=== PATIENT | female | born 1945 | race Caucasian/White ===

== ENCOUNTER → 2023-07-08 07:28 | Outpatient (REF) | payer MEDICARE, OTHER, SELFPAY | LOC: RAD 07:28 | PROVIDERS: ATTENDING PHYSICIAN Family Medicine | DX: R10.13 Epigastric pain (principal); E10.11 Type 1 diabetes mellitus with ketoacidosis with coma | CPT/HCPCS: 76700 ==

== ENCOUNTER → 2023-07-12 09:49 | Outpatient (REF) | payer MEDICARE, OTHER, SELFPAY | LOC: RAD 09:49 | PROVIDERS: ATTENDING PHYSICIAN Family Medicine | DX: R10.13 Epigastric pain (principal); R10.11 Right upper quadrant pain | CPT/HCPCS: 74246 ==

== ENCOUNTER 2023-11-14 11:00 | Emergency (ER) | payer MEDICARE, OTHER, SELFPAY ==
[2023-11-14 11:09] VITALS: BP 169/93
[2023-11-14 11:31] VITALS: BMI 32.1
[2023-11-14 11:35] LABS: % Basophils 0.7 % (0-2); % Eosinophils 0.4 % (0-6); % Immature Granulocytes 0.1 % (0-0.5); % Lymphocytes 28.5 % (20.5-51.1); % Monocytes 9.8 % (1.7-9.3); % Neutrophils 60.5 % (42.2-75.2); Absolute Basophils 0.1 10^3/uL (0-0.2); Absolute Monocytes 0.7 10^3/uL (0.1-0.6); Absolute Neutrophils 4.2 10^3/uL (1.4-6.5); Hematocrit 45.9 % (37.0-47.0); Hemoglobin 15.3 g/dL (12.0-16.0); Mean Corp Hgb Conc. 33.3 g/dL (33.0-37.0); Mean Corpuscular Hgb 28.9 pg (27.0-31.0); Mean Corpuscular Volume 86.8 fL (81.0-99.0); Mean Platelet Volume 10.6 fL (7.4-10.4); Nucleated Red Blood Cells % 0 %; Platelet Count 242 10^3/uL (130-400); Red Blood Cell Count 5.29 10^6/uL (4.20-5.40); Red Cell Dist. Width 13.6 % (11.5-14.5); White Blood Cell Count 6.9 10^3/uL (4.8-10.8)
--- NOTE | 2023-11-14 11:38 | ED.GENMED ---
History of Present Illness
General
Chief Complaint: Chest Pain
Time Seen by Provider: 11/14/23 11:38
History of Present Illness
History of Present Illness:
HPI: At about 7:30 AM today, while driving to get EEG, she developed chest discomfort in the center of the chest. She cannot qualify with this feels like well. She has been seen by Dr. Danielson in the past. She has had similar chest discomfort
feelings in the past. She had a more severe episode in June 2023. She has minimal symptoms currently. She has no shortness of breath. She primarily perseverates over the fact that she had '49' episodes of shaking of the left upper extremity
overnight. This is an increased amount of shaking compared to prior. She never had loss of consciousness. That the preliminary report for the EEG was unremarkable and that she 'does not have epilepsy'.
EXAM:
GENERAL: Well appearing in no distress
HEENT: Moist oral mucosa
CARDIOVASCULAR: No murmurs, normal heart rate, regular rhythm, No chest wall tenderness
PULMONARY: No respiratory distress, breath sounds are clear and equal
ABDOMEN: Soft with no peritoneal signs, no tenderness
NEUROLOGIC: Excellent strength all extremities, no coordination deficits, no seizure activity, no myoclonic jerking activity
PSYCHIATRIC: Appropriate mental status, normal insight and judgement
EXTREMITIES: Nontender, no edema, moves all extremities equally
SKIN: No rash, no lesions
TIME OF INITIAL ENCOUNTER: 12:10 PM
NUMBER AND COMPLEXITY OF PROBLEMS ADDRESSED AT THE ENCOUNTER
� Chronic conditions affecting care: High blood pressure, hyperlipidemia
� Acute Exacerbation and/or Progression of Chronic Illness: This is an acute problem
� Differential Diagnosis includes: Nonspecific chest wall pain, ACS, doubt pneumonia as she has no respiratory send
AMOUNT AND/OR COMPLEXITY OF DATA TO BE REVIEWED AND ANALYZED
� I performed an independent evaluation of and my interpretation is:
EKG: Sinus 75, right bundle branch block nonspecific ST abnormality
CT:
X-rays:
Laboratory Studies: CBC, chemistries and troponin unremarkable
Other:
� Review of other/old records:
� Clinical information was obtained by an independent historian: None needed
� Prescriptions/Medications Considered but not given:
� Further testing considered but not performed: Offered and considered chest x-ray however the patient has clear lung sounds and patient does not want chest x-ray at this time
RISK OF COMPLICATIONS AND/OR MORBIDITY OR MORTALITY OF PATIENT MANAGEMENT
� Social determinants of health affecting care: Lives at home
� Discussion with other providers:
� Escalation of care including admission/observation vs risk of discharge considered: The patient had about 4 hours worth of symptoms before troponin drawn. Troponin unremarkable and EKG unchanged. She has relatively low
concerns and feels very comfortable with going home. She would like to be discharged at this time. Consider chest x-ray however the patient also declined chest x-ray. She is also going to follow-up with neurologist as well as cardiology. CBC
cardiology discharge paperwork given to expedite close follow-up.
Past History
Past History
ED Past Medical History: HTN and Psychiatric
Social History
Personal: Single
Living: alone
Employment: Employed
Family History
Family History: Other (Cardiac )
Phy Exam
Physical Exam
Physical Exam:
See HPI
Scores
Heart Score for Chest Pain Patients
STEMI patient?: Not applicable
Course
Orders/Labs/Results
Orders:
Orders
11/14/23 11:02
EKG [Electrocardiogram (*1)] Urgent
Reason for Study: Chest Pain
EKG- Treatment ONCE
11/14/23 11:16
Cardiac Monitoring- Treatment ONCE
IV Insert/Care/Rem.- Treatment PRN
11/14/23 11:25
Complete Blood Count/With Diff Urgent
Comprehensive Metabolic Panel Urgent
Troponin I Urgent
Abnormal Lab Results
11/14/23
11:25
MPV 10.6 H fL
(7.4-10.4)
Absolute Monos (auto) 0.7 H 10^3/uL
(0.1-0.6)
Monocytes % 9.8 H %
(1.7-9.3)
BUN 26 H mg/dl
(7-17)
Glucose 125 H mg/dl
(70-99)
11/14/23 11:25
11/14/23 11:25
Vital Signs
Initial and Last Documented VS:
Initial Vital Signs
Temp Pulse Resp BP Pulse Ox
98.0 F 84 16 169/93 98
11/14/23 11:09 11/14/23 11:09 11/14/23 11:09 11/14/23 11:09 11/14/23 11:09
Last Documented Vital Signs
Temp Pulse Resp BP Pulse Ox
98.0 F 74 17 169/93 97
11/14/23 11:09 11/14/23 12:15 11/14/23 12:15 11/14/23 11:09 11/14/23 12:15
*Critical Care Note
Total Time (30-74mins, 75-104mins- exclusive of procedures): Not Applicable
ED Attending Note
-
Portions of this chart may have been created with voice recognition software.� Occasional wrong word or��sound alike� substitutions may have occurred due to the inherent limitations of voice recognition software.
Discharge Plan
Departure
Patient Disposition: Home (Routine Discharge)
Date of Disposition: 11/14/23
Time of Disposition: 12:26
Patient with high blood pressure during this ER visit?: Yes
Discharge Problem:
Chest pain
Instructions: Chest Pain CBC Follow Up
Prescriptions:
No Action
atenolol 25 MG tablet
25 mg PO DAILY
multivitamin with folic acid [Tab-A-Kvng] 1 TABLET tablet
1 tab PO DAILY
glycopyrrolate 1 MG tablet
1 mg PO DAILY PRN (Reason: sweating)
Citalopram HBr
15 mg PO DAILY
triamterene-hydrochlorothiazid 1 EACH tablet
0.5 ea PO PRN PRN (Reason: swelling)
cholecalciferol (vitamin D3) [Vitamin D3] 1,000 UNIT capsule
1,000 unit PO DAILY
rosuvastatin 10 MG tablet
10 mg PO .SATURDAY
donepezil 10 mg Tablet
10 mg PO HS
meloxicam 7.5 mg Tablet
7.5 mg PO DAILY
Referrals:
Manny Danielson MD [Active] - Follow up in 2-3 days
Activity Restrictions/Additional Instructions:
EKG shows a right bundle branch block similar to prior, I see no clear sign of heart attack based on EKG. Cardiac blood work also was normal. Follow-up with Dr. Danielson as well as your neurologist. Somebody from Dr. Danielson's office should be calling
you for follow-up.
Interventions
Interventions:
*Risk Screen - Suicide Last Done: 11/14/23 11:35
*General Assessment Last Done: 11/14/23 11:35
*Neglect/Abuse Screening Last Done: 11/14/23 11:35
ED- Fall Risk Assessment Last Done: 11/14/23 11:31
*ED COVID-19 Vaccine History Last Done: 11/14/23 11:09
ED- Cardiac Assessment Last Done: 11/14/23 11:31
Discharge Date and Time
Print Language: TURKISH
[2023-11-14 11:55] LABS: ALT (SGPT) 25 U/L (0-35); AST (SGOT) 33 U/L (14-36); Albumin 4.8 g/dl (3.5-5.0); Alkaline Phosphatase 83 U/L (38-126); Blood Urea Nitrogen 26 mg/dl (7-17); Carbon Dioxide 27 mmol/L (22-30); Chloride 102 mmol/L (98-107); Estimated Creatinine Clearance 45 ml/min; Glucose 125 mg/dl (70-99); Potassium 3.7 mmol/L (3.5-5.1); Sodium 139 mmol/L (135-145); Total Bilirubin 0.7 mg/dl (0.2-1.3); Total Protein 7.9 g/dl (6.3-8.2); eGFR > 60.00
[2023-11-14 12:06] LABS: Troponin I < 0.012 ng/ml
[2023-11-14 12:31] VITALS: BP 144/67
== END 2023-11-14 12:52 | disposition home or self-care (01) ==
LOC: EMR 11:00
PROVIDERS: EMERGENCY PHYSICIAN Emergency Medicine; FAMILY PHYSICIAN Family Medicine
DX: R07.89 Other chest pain (principal); I10 Essential (primary) hypertension
CPT/HCPCS: 99283; 80053; 84484; 85025; 93005

== ENCOUNTER → 2023-12-03 13:26 | Outpatient (REF) | payer MEDICARE, OTHER, SELFPAY | LOC: RAD 13:26 | PROVIDERS: ATTENDING PHYSICIAN Emergency Medicine | DX: M79.89 Other specified soft tissue disorders (principal); R60.0 Localized edema | CPT/HCPCS: 93971 ==

== ENCOUNTER 2023-12-03 14:15 | Emergency (ER) | payer MEDICARE, OTHER, SELFPAY ==
[2023-12-03 14:16] VITALS: BP 162/74
[2023-12-03 15:22] VITALS: BMI 33.3
[2023-12-03 15:26] VITALS: BP 174/89
--- NOTE | 2023-12-03 15:34 | ED.GENMED ---
History of Present Illness
General
Chief Complaint: DVT/Possible Blood Clot
Source: patient
Time Seen by Provider: 12/03/23 15:12
History of Present Illness
History of Present Illness:
78-year-old female presents to the emergency room complaining of pain and swelling in her left lower extremity which prompted an outpatient ultrasound. Ultrasound showed that she has a clot in her left lower extremity. Patient was told to come to
the emergency room by her primary care physician. Patient denies any shortness of breath. She noted the swelling approximately 4 to 5 days ago. She has mild discomfort. Patient denies any fever, chills, nausea or vomiting. She denies any recent
long car rides, hospitalizations or operations. She does state that she went to a movie which lasted 3 and half hours. She sat the whole time.
Past History
Past History
ED Past Medical History: HTN and Psychiatric
Social History
Personal: Single
Living: alone
Employment: Employed
Family History
Family History: Other (Cardiac )
Phy Exam
Physical Exam
Physical Exam:
General: Awake, Alert, Oriented X3. No acute distress.
Vitals: unremarkable
Head: Atraumatic
Eyes: Pupils equal, EOMI
Throat: Airway intact, no exudates
Neck: Trachea midline
Lungs: Crackles bilateral bases
Heart: Regular rate, 2/6 murmurs
Abd: Soft, Nontender, No pulsatile mass
Neuro: Nonfocal
Skin: Warm, dry, no rash
Extremities: pulses equal b/l, nonpitting swelling with mild erythema noted of the left leg from the foot up to the proximal thigh.
Course
Orders/Labs/Results
Orders:
Orders
12/03/23 16:03
Complete Blood Count/With Diff Urgent
Comprehensive Metabolic Panel Urgent
PTT Urgent
Prothrombin Time Urgent
12/03/23 16:51
Apixaban [Eliquis] 10 mg PO NOW STA
Abnormal Lab Results
12/03/23
16:03
Sodium 134 L mmol/L
(135-145)
Potassium 3.3 L mmol/L
(3.5-5.1)
Chloride 96 L mmol/L
(98-107)
BUN 20 H mg/dl
(7-17)
Glucose 107 H mg/dl
(70-99)
12/03/23 16:03
12/03/23 16:03
Vital Signs
Initial and Last Documented VS:
Initial Vital Signs
Temp Pulse Resp BP Pulse Ox
98.2 F 89 18 162/74 99
12/03/23 14:16 12/03/23 14:16 12/03/23 14:16 12/03/23 14:16 12/03/23 14:16
Last Documented Vital Signs
Temp Pulse Resp BP Pulse Ox
98.2 F 74 17 144/74 99
12/03/23 14:16 12/03/23 17:05 12/03/23 17:05 12/03/23 17:05 12/03/23 17:05
MDM/Problems Addressed
Differential Diagnosis Includes:
dvt, peripheral edema
MDM/Problems Addressed:
Patient presents with an outpatient study showing a DVT. Labs were obtained. Platelet count is normal. LFTs are normal. Renal function is essentially normal. Patient does not have any indication for hospitalization. She does not have pleuritic
chest pain. She is not short of breath. She is not tachycardic. Left lower extremity is neurovascularly intact. We will start oral anticoagulation. Case management will provide a coupon to provide the first month at no charge. Patient can
follow-up with her primary care doctor to help facilitate further medication.
*Radiology
Radiology exam reviewed: radiology read reviewed
*Pulse Oximetry
Patient hypoxic: no
*Critical Care Note
Total Time (30-74mins, 75-104mins- exclusive of procedures): Not Applicable
ED Attending Note
-
Portions of this chart may have been created with voice recognition software.� Occasional wrong word or��sound alike� substitutions may have occurred due to the inherent limitations of voice recognition software.
Discharge Plan
Departure
Patient Disposition: Home (Routine Discharge)
Date of Disposition: 12/03/23
Time of Disposition: 16:54
Patient with high blood pressure during this ER visit?: Yes
Condition: Good
Discharge Problem:
DVT of lower extremity (deep venous thrombosis)
Instructions: Deep Vein Thrombosis (DVT) ED, BLOOD PRESSURE
Prescriptions:
New
Eliquis 5 mg tablet
5 mg PO BID Qty: 74 0RF
Rx Instructions:
10mg (two tablets) twice a day for one week then 5mg (one tablet) twice a day.
No Action
atenolol 25 MG tablet
25 mg PO DAILY
glycopyrrolate 1 MG tablet
1 mg PO DAILY
rosuvastatin 10 MG tablet
10 mg PO [place]
donepezil 10 mg Tablet
10 mg PO HS
magnesium oxide 420 mg Tablet
420 mg PO HS
atenolol 25 mg Tablet
12.5 mg PO HS
Theragen Tablet
1 tab PO DAILY
citalopram 20 mg Tablet
20 mg PO DAILY
citalopram 20 mg Tablet
5 mg PO HS
triamterene-hydrochlorothiazid 75-50 mg Tablet
0.5 tab PO MOWEFR
cholecalciferol (vitamin D3) [Vitamin D3] 50 mcg (2,000 unit) Tablet
50 mcg PO DAILY
omega 5-gky-upi-fish oil [Fish Oil] 1,200 (144-216) mg Capsule
1 cap PO DAILY
Zypan
1 tab PO DAILY
lansoprazole [Prevacid] 15 mg Capsule,Delayed Release(Dr/Ec)
15 mg PO DAILY
Rx Instructions:
12/03/23: on 14 day course with 1 tablet once a day, started on 11/27/23
dextran 70-hypromellose (PF) 0.1-0.3 % Dropperette
2 drp BOTH EYES BID
Referrals:
Victor Hugo Rai, DO [Family Provider] -
Activity Restrictions/Additional Instructions:
We have prescribed an oral blood thinner to treat the clot in your left leg. While taking blood thinners you need to be aware that if you have a fall and strike your head you should come to the emergency room for evaluation. Any small cuts or
nicks etc. that may occur will bleed more while you are on the blood thinner. You should not take ibuprofen or similar medication called NSAIDs. Please follow-up with Dr. Rai's office within the next week or 2. I have sent a prescription
for the first month of medication. They will need to continue the medication. Return to the emergency room if you develop chest pain or shortness of breath.
Interventions
Interventions:
*Risk Screen - Suicide Last Done: 12/03/23 15:23
*General Assessment Last Done: 12/03/23 15:23
*Neglect/Abuse Screening Last Done: 12/03/23 15:23
*Nursing Disposition Last Done: 12/03/23 17:24
ED- Cardiac Assessment Last Done: 12/03/23 15:32
ED- Pulmonary Assessment Last Done: 12/03/23 15:32
ED-Peripheral Vascular Assessment Last Done: 12/03/23 15:32
ED-Skin Assessment Last Done: 12/03/23 15:32
Discharge Date and Time
Discharge Date/Time: 12/03/23 17:25
Print Language: BHUTANESE
--- NOTE | 2023-12-03 15:59 | CM ---
CM reviewed medical records. CM called patient's [facility] and confirmed cost of Eliquis is $532. Patient would be eligible for coupon. CM updated ED physician.
[2023-12-03 16:00] VITALS: BP 167/84
[2023-12-03 16:16] LABS: % Basophils 0.3 % (0-2); % Eosinophils 0.7 % (0-6); % Immature Granulocytes 0.3 % (0-0.5); % Lymphocytes 28.1 % (20.5-51.1); % Neutrophils 61.6 % (42.2-75.2); Absolute Lymphocytes 1.7 10^3/uL (1.2-3.4); Absolute Monocytes 0.5 10^3/uL (0.1-0.6); Absolute Neutrophils 3.6 10^3/uL (1.4-6.5); Hematocrit 41.2 % (37.0-47.0); Mean Corpuscular Volume 85.5 fL (81.0-99.0); Nucleated Red Blood Cells % 0 %; Platelet Count 177 10^3/uL (130-400); Red Blood Cell Count 4.82 10^6/uL (4.20-5.40); White Blood Cell Count 5.9 10^3/uL (4.8-10.8)
[2023-12-03 16:27] LABS: INR 1.03; PT 13.3 Sec (11.4-14.6)
[2023-12-03 16:28] LABS: APTT 30.8 Sec (23.4-35.0)
[2023-12-03 16:36] LABS: ALT (SGPT) 24 U/L (0-35); AST (SGOT) 36 U/L (14-36); Alkaline Phosphatase 76 U/L (38-126); Blood Urea Nitrogen 20 mg/dl (7-17); Calcium 9.4 mg/dl (8.4-10.2); Carbon Dioxide 28 mmol/L (22-30); Chloride 96 mmol/L (98-107); Estimated Creatinine Clearance 54 ml/min; Glucose 107 mg/dl (70-99); Potassium 3.3 mmol/L (3.5-5.1); Sodium 134 mmol/L (135-145); Total Bilirubin 0.7 mg/dl (0.2-1.3); Total Protein 6.9 g/dl (6.3-8.2); eGFR > 60.00
[2023-12-03 17:05] VITALS: BP 144/74
[2023-12-03] MEDS: ELIQUIS 10 MG PO (17:10)
--- NOTE | 2023-12-03 17:21 | CM ---
CM introduced self and role. Spoke with patient and daughter at bedside. Explained pricing of Eliquis to patient and daughter. Daughter also in room. Eliquis coupons and education given to patient.She and daughter verbalized understanding. They
understand patient will have to follow up with doctor and discuss how long she will need to continue Eliquis.
== END 2023-12-03 17:25 | disposition home or self-care (01) ==
LOC: EMR 14:15
PROVIDERS: EMERGENCY PHYSICIAN Emergency Medicine; FAMILY PHYSICIAN Family Medicine
DX: I82.402 Acute embolism and thrombosis of unspecified deep veins of left lower extremity (principal); M79.605 Pain in left leg; I10 Essential (primary) hypertension; Z91.041 Radiographic dye allergy status
CPT/HCPCS: 99283; 80053; 85025; 85610; 85730

== ENCOUNTER → 2023-12-24 18:03 | Outpatient (REF) | payer MEDICARE, OTHER, SELFPAY | LOC: CLAB 18:03 | PROVIDERS: ATTENDING PHYSICIAN Nurse Practitioner Family | DX: R42 Dizziness and giddiness (principal); R79.89 Other specified abnormal findings of blood chemistry | CPT/HCPCS: 82728; 83550 ==

== ENCOUNTER → 2024-02-12 09:17 | Outpatient (REF) | payer MEDICARE, OTHER, SELFPAY ==
[2024-02-12 10:12] LABS: % Basophils 0.8 % (0-2); % Immature Granulocytes 0.3 % (0-0.5); % Lymphocytes 40.3 % (20.5-51.1); % Monocytes 9.3 % (1.7-9.3); % Neutrophils 45.3 % (42.2-75.2); Absolute Basophils 0.1 10^3/uL (0-0.2); Absolute Eosinophils 0.3 10^3/uL (0-0.7); Absolute Lymphocytes 2.5 10^3/uL (1.2-3.4); Absolute Monocytes 0.6 10^3/uL (0.1-0.6); Absolute Neutrophils 2.8 10^3/uL (1.4-6.5); Hematocrit 42.5 % (37.0-47.0); Mean Corp Hgb Conc. 32.9 g/dL (33.0-37.0); Mean Corpuscular Hgb 28.8 pg (27.0-31.0); Mean Corpuscular Volume 87.4 fL (81.0-99.0); Mean Platelet Volume 10.5 fL (7.4-10.4); Nucleated Red Blood Cells % 0 %; Platelet Count 237 10^3/uL (130-400); Red Blood Cell Count 4.86 10^6/uL (4.20-5.40); Red Cell Dist. Width 14.5 % (11.5-14.5); White Blood Cell Count 6.2 10^3/uL (4.8-10.8)
[2024-02-12 11:33] LABS: ALT (SGPT) 25 U/L (0-35); AST (SGOT) 31 U/L (14-36); Albumin 4.3 g/dl (3.5-5.0); Alkaline Phosphatase 90 U/L (38-126); Blood Urea Nitrogen 28 mg/dl (7-17); Calcium 9.8 mg/dl (8.4-10.2); Carbon Dioxide 30 mmol/L (22-30); Chloride 100 mmol/L (98-107); Glucose 91 mg/dl (70-99); HDL Cholesterol 91 mg/dl; LDL Cholesterol, Calculated 93 mg/dl; Potassium 3.8 mmol/L (3.5-5.1); Sodium 140 mmol/L (135-145); Total Bilirubin 0.7 mg/dl (0.2-1.3); Total Cholesterol 210 mg/dl (50-199); Total Protein 7.2 g/dl (6.3-8.2); Triglyceride 131 mg/dl (10-149); Very Low Density Lipoprotein 26 mg/dl (0-30); eGFR 56.95
[2024-02-12 11:56] LABS: TSH 2.38 uIU/ml (0.47-4.68)
== END ==
LOC: REG 09:17
PROVIDERS: ATTENDING PHYSICIAN Family Medicine
DX: E78.2 Mixed hyperlipidemia (principal); I10 Essential (primary) hypertension
CPT/HCPCS: 36415; 80053; 80061; 84443; 85025

== ENCOUNTER → 2024-10-07 10:20 | Outpatient (REF) | payer MEDICARE, OTHER, SELFPAY ==
[2024-10-07 12:28] LABS: ALT (SGPT) 21 U/L (0-35); AST (SGOT) 25 U/L (14-36); Albumin 4.5 g/dl (3.5-5.0); Alkaline Phosphatase 68 U/L (38-126); Blood Urea Nitrogen 24 mg/dl (7-17); Calcium 9.2 mg/dl (8.4-10.2); Carbon Dioxide 27 mmol/L (22-30); Chloride 105 mmol/L (98-107); Glucose 99 mg/dl (70-99); HDL Cholesterol 104 mg/dl; LDL Cholesterol, Calculated 68 mg/dl; Potassium 4.5 mmol/L (3.5-5.1); Sodium 140 mmol/L (135-145); Total Bilirubin 0.5 mg/dl (0.2-1.3); Total Cholesterol 188 mg/dl (50-199); Total Protein 7.2 g/dl (6.3-8.2); Triglyceride 82 mg/dl (10-149); Very Low Density Lipoprotein 16 mg/dl (0-30); eGFR > 60.00
== END ==
LOC: REG 10:20
PROVIDERS: ATTENDING PHYSICIAN Family Medicine
DX: E78.2 Mixed hyperlipidemia (principal); I10 Essential (primary) hypertension
CPT/HCPCS: 36415; 80053; 80061

== ENCOUNTER → 2024-10-12 17:06 | Outpatient (REF) | payer MEDICARE, OTHER, SELFPAY | LOC: RAD 17:06 | PROVIDERS: ATTENDING PHYSICIAN Family Medicine | DX: M54.16 Radiculopathy, lumbar region (principal); M51.362 Other intervertebral disc degeneration, lumbar region with discogenic back pain and lower extremity pain | CPT/HCPCS: 72110 ==

== ENCOUNTER 2024-11-18 11:07 | Outpatient (RCR) | payer MEDICARE, OTHER, SELFPAY | END 2024-11-18 23:59 | disposition home or self-care (01) | LOC: RPT 11:07 | PROVIDERS: ATTENDING PHYSICIAN Physician Assistant Medical | DX: M54.42 Lumbago with sciatica, left side (principal); R42 Dizziness and giddiness; Z73.6 Limitation of activities due to disability; R26.89 Other abnormalities of gait and mobility | CPT/HCPCS: 97110; 97163; 97530 ==

== ENCOUNTER 2024-12-22 13:02 | Outpatient (RCR) | payer MEDICARE, OTHER, SELFPAY | END 2024-12-22 23:59 | disposition home or self-care (01) | LOC: RPT 13:02 | PROVIDERS: ATTENDING PHYSICIAN Otolaryngology; FAMILY PHYSICIAN Physician Assistant Medical | DX: R42 Dizziness and giddiness (principal); Z73.6 Limitation of activities due to disability; M54.2 Cervicalgia | CPT/HCPCS: 97110; 97162; 97530 ==

== ENCOUNTER 2024-12-29 17:04 | Outpatient (RCR) | payer MEDICARE, OTHER, SELFPAY | END 2024-12-29 23:59 | disposition home or self-care (01) | LOC: RPT 17:04 | PROVIDERS: ATTENDING PHYSICIAN Otolaryngology; FAMILY PHYSICIAN Physician Assistant Medical | DX: R42 Dizziness and giddiness (principal); Z73.6 Limitation of activities due to disability; M54.2 Cervicalgia | CPT/HCPCS: 97010; 97110; 97530 ==

== ENCOUNTER → 2025-01-19 13:25 | Outpatient (REF) | payer MEDICARE, OTHER, SELFPAY | LOC: MRI 3T 13:25 | PROVIDERS: ATTENDING PHYSICIAN Family Medicine | DX: R42 Dizziness and giddiness (principal) | CPT/HCPCS: 70551 ==

== ENCOUNTER → 2025-01-28 13:21 | Outpatient (REF) | payer MEDICARE, OTHER, SELFPAY | LOC: RCS 13:21 | PROVIDERS: ATTENDING PHYSICIAN Internal Medicine Cardiovascular Disease; FAMILY PHYSICIAN Family Medicine | DX: R07.89 Other chest pain (principal) | CPT/HCPCS: 93017; 93350 ==

== ENCOUNTER → 2025-02-22 10:46 | Outpatient (REF) | payer MEDICARE, OTHER, SELFPAY ==
[2025-02-22 11:45] LABS: Hematocrit 43.8 % (37.0-47.0); Hemoglobin 14.2 g/dL (12.0-16.0); Mean Corp Hgb Conc. 32.4 g/dL (33.0-37.0); Mean Corpuscular Volume 90.7 fL (81.0-99.0); Nucleated Red Blood Cells % 0 %; Platelet Count 211 10^3/uL (130-400); Red Cell Dist. Width 13.4 % (11.5-14.5)
[2025-02-22 12:36] LABS: ALT (SGPT) 20 U/L (0-35); AST (SGOT) 25 U/L (14-36); Albumin 4.5 g/dl (3.5-5.0); Alkaline Phosphatase 81 U/L (38-126); Blood Urea Nitrogen 17 mg/dl (7-17); Calcium 9.6 mg/dl (8.4-10.2); Carbon Dioxide 27 mmol/L (22-30); Chloride 105 mmol/L (98-107); Glucose 101 mg/dl (70-99); HDL Cholesterol 101 mg/dl; Iron 137 ug/dl (37-170); LDL Cholesterol, Calculated 73 mg/dl; Potassium 4.5 mmol/L (3.5-5.1); Sodium 139 mmol/L (135-145); Total Protein 7.3 g/dl (6.3-8.2); Very Low Density Lipoprotein 23 mg/dl (0-30); eGFR > 60.00
[2025-02-22 13:13] LABS: TSH 1.97 uIU/ml (0.47-4.68)
[2025-02-22 13:15] LABS: Ferritin 77.9 ng/ml (11.1-264.0)
[2025-02-22 13:29] LABS: Vitamin B12 675 pg/ml (239-931)
== END ==
LOC: REG 10:46
PROVIDERS: ATTENDING PHYSICIAN Family Medicine
DX: E78.2 Mixed hyperlipidemia (principal); I10 Essential (primary) hypertension; D51.9 Vitamin B12 deficiency anemia, unspecified
CPT/HCPCS: 36415; 80053; 80061; 82607; 82728; 83540; 84443; 85025

== ENCOUNTER 2025-02-24 20:03 | Emergency (ER) | payer MEDICARE, OTHER, SELFPAY ==
[2025-02-24 20:11] VITALS: BP 152/97
[2025-02-24 20:33] LABS: Hematocrit 45.0 % (37.0-47.0); Hemoglobin 14.7 g/dL (12.0-16.0); Mean Corp Hgb Conc. 32.7 g/dL (33.0-37.0); Mean Corpuscular Volume 88.8 fL (81.0-99.0); Nucleated Red Blood Cells % 0 %; Platelet Count 234 10^3/uL (130-400); Red Cell Dist. Width 13.4 % (11.5-14.5)
[2025-02-24 20:46] LABS: ALT (SGPT) 21 U/L (0-35); AST (SGOT) 29 U/L (14-36); Albumin 4.8 g/dl (3.5-5.0); Alkaline Phosphatase 80 U/L (38-126); Blood Urea Nitrogen 26 mg/dl (7-17); Calcium 10.0 mg/dl (8.4-10.2); Carbon Dioxide 28 mmol/L (22-30); Chloride 105 mmol/L (98-107); Glucose 122 mg/dl (70-99); Potassium 4.9 mmol/L (3.5-5.1); Sodium 140 mmol/L (135-145); Total Protein 7.9 g/dl (6.3-8.2); eGFR > 60.00
[2025-02-24 20:58] LABS: Troponin I 0.012 ng/ml
[2025-02-24 23:25] VITALS: BP 162/62
[2025-02-24 23:28] VITALS: BP 162/62
--- NOTE | 2025-02-24 23:35 | ED.GENMED ---
Addendum entered and electronically signed by Victor Hugo Angeles MD 02/25/25 02:22:
Copy of CT report given to patient to follow-up thyroid nodule and lung changes
Original Note:
History of Present Illness
General
Chief Complaint: Blood Pressure Problem
Source: patient
Exam Limitations: none
Time Seen by Provider: 02/24/25 23:34
History of Present Illness
History of Present Illness:
79-year-old female complaining of ongoing dizziness. This has been going on for approximately 6 to 8 months. Seems positional in nature. Episodic. Will fluctuate at times and more severe at times. Last week she tilted her head back going up the
stairs and it was more severe. She has been seen by ENT and physical therapy. She had an MRI done in late December that was negative. She was at her physician today and had significant blood pressure elevation that combined with some chest pain
while she was in the office prompted ER evaluation. Currently complaining of some mild ongoing chest pain since 5 or 6:00 no pleuritic pain no headache no shortness of breath.
Past History
Past History
ED Past Medical History: HTN and Psychiatric
Social History
Personal: Single
Living: alone
Employment: Employed
Family History
Family History: Other (Cardiac )
Phy Exam
Physical Exam
Physical Exam:
GENERAL: Alert and oriented in no apparent distress
EYE: Orbits normal. Extraocular muscles intact. No nystagmus.
NECK: Supple, no carotid bruit
ENT: Pharynx without erythema
CARDIAC: Regular rate and rhythm without any obvious murmurs.
LUNGS: Clear breath sounds,normal
ABDOMEN: Soft, without focal tenderness or distention
NEUROLOGICAL: Alert and oriented , cranial nerves II through XII intact. Speech normal. [id number] normal. Ambulates well after getting up
SKIN: Warm and dry, no rash or lesion, no discoloration, skin intact.
MUSCULOSKELETAL: No edema,no deformity.Good color
PSYCH: Normal and appropriate interaction.
Course
Orders/Labs/Results
Orders:
Orders
02/24/25 20:14
ECG [Electrocardiogram (*1)] Urgent
Reason for Study: Hypertension, Benign
02/24/25 20:15
CT Head W/o Iv Contrast Urgent
Comment:
Reason For Exam: dizziness
EKG- Treatment ONCE
02/24/25 20:23
Complete Blood Count/With Diff Urgent
Comprehensive Metabolic Panel Urgent
Troponin I Urgent
02/24/25 23:58
Electrocardiogram (*1) Stat
Reason for Study: Other
Other Reason for Exam: chest pain
EKG- Treatment ONCE
IV Insert/Care/Rem.- Treatment PRN
Troponin I Urgent
0.9% Sodium Chloride 500 ml [Nss] 500 ml IV BOLUS
02/25/25
CT Head & Neck Angio W/wo IV Urgent
Reason For Exam: Neck pain/dizziness
02/25/25 02:14
Meclizine [Antivert] 12.5 mg PO NOW STA
Abnormal Lab Results
02/24/25
20:23
MCHC 32.7 L g/dL
(33.0-37.0)
Monocytes % 9.4 H %
(1.7-9.3)
BUN 26 H mg/dl
(7-17)
Glucose 122 H mg/dl
(70-99)
02/24/25 20:23
02/24/25 20:23
Vital Signs
Initial and Last Documented VS:
Initial Vital Signs
Temp Pulse Resp BP Pulse Ox
98.0 F 69 18 152/97 99
02/24/25 20:11 02/24/25 20:11 02/24/25 20:11 02/24/25 20:11 02/24/25 20:11
Last Documented Vital Signs
Temp Pulse Resp BP Pulse Ox
97.6 F 64 19 136/72 99
02/24/25 23:28 02/25/25 01:15 02/25/25 01:15 02/25/25 01:00 02/25/25 01:15
MDM/Problems Addressed
Differential Diagnosis Includes:
Patient's major complaints appear to be her vertigo that has been ongoing in nature along with left-sided neck pain. Highly doubt primary neurologic issue given that she has had the symptoms for 6 to 8 months with no digression. She has had an MRI
in late December that was unremarkable. She is neurologically stable. Her neurologic exam is normal. However with the neck pain we will get a CT angio to evaluate for vertebral artery thrombus or carotid thrombus or dissection. As for the chest
pain this only started while she was in the office. It was atypical not exertional. She has had a stress test done January 28 of this year that was unremarkable. Blood pressure is improved currently. Initial EKG and troponin normal. We will
repeat the 3-hour troponin and EKG for completeness.
*Radiology
Radiology exam reviewed: radiology read reviewed (No acute findings on head CT) and other (No acute findings on CTA. Ground glass appearance in the upper lungs. Thyroid nodules.)
*Pulse Oximetry
SaO2: 99
Oxygen Mode of Delivery: Room air
Patient hypoxic: no
*EKG
Interpreted by ED Provider?: Yes
Interpretation: abnormal
Comparison EKG: changes noted
Heart Rate: 59
Rate: normal
Rhythm: sinus
[place]: normal axis
Interval: normal interval
QRS Pattern: right bundle branch block (inc)
Ischemia: non-specific ST changes
*Critical Care Note
Total Time (30-74mins, 75-104mins- exclusive of procedures): Not Applicable
Data Reviewed
Review of Other/Old Records Reveals: Labs, Records and Radiology Studies
Update Note
Update Note:
Patient is remained stable and nontoxic. Cardiac testing is stable. Repeat EKG is stable. Repeat troponin is stable. CT angiography is negative. Patient is aware of thyroid nodules and ground glass appearance on CT scan. When she got up to
walk and tilted her head back she had some dizziness. However upon standing she ambulated well. This again has been an ongoing issue since October. She had an MRI in December for this. That was negative. She has been seen by neurology and ENT. I
highly doubt a acute CVA. Again the symptoms have been ongoing but are just worse the last 3 to 4 days. Stable for discharge to follow-up
ED Attending Note
-
Portions of this chart may have been created with voice recognition software.� Occasional wrong word or��sound alike� substitutions may have occurred due to the inherent limitations of voice recognition software.
Discharge Plan
Departure
Patient Disposition: Home (Routine Discharge)
Date of Disposition: 02/25/25
Time of Disposition: 02:15
Patient with high blood pressure during this ER visit?: Yes
Discharge Problem:
Dizziness, Chest pain
Instructions: Dizziness in adults - ED (DC), Chest Pain PCP Follow Up, BLOOD PRESSURE
Prescriptions:
New
meclizine 12.5 mg tablet
12.5 mg PO TID PRN (Reason: dizziness) Qty: 14 0RF
No Action
atenolol 25 MG tablet
25 mg PO DAILY
glycopyrrolate 1 MG tablet
1 mg PO DAILY
rosuvastatin 10 MG tablet
10 mg PO [place]
donepezil 10 mg Tablet
10 mg PO HS
magnesium oxide 420 mg Tablet
420 mg PO HS
atenolol 25 mg Tablet
12.5 mg PO HS
Theragen Tablet
1 tab PO DAILY
citalopram 20 mg Tablet
20 mg PO DAILY
citalopram 20 mg Tablet
5 mg PO HS
triamterene-hydrochlorothiazid 75-50 mg Tablet
0.5 tab PO MOWEFR
cholecalciferol (vitamin D3) [Vitamin D3] 50 mcg (2,000 unit) Tablet
50 mcg PO DAILY
omega 0-cdv-lhr-fish oil [Fish Oil] 1,200 (144-216) mg Capsule
1 cap PO DAILY
Zypan
1 tab PO DAILY
lansoprazole [Prevacid] 15 mg Capsule,Delayed Release(Dr/Ec)
15 mg PO DAILY
Rx Instructions:
12/03/23: on 14 day course with 1 tablet once a day, started on 11/27/23
dextran 70-hypromellose (PF) 0.1-0.3 % Dropperette
2 drp BOTH EYES BID
Eliquis 5 mg tablet
5 mg PO BID Qty: 74 0RF
Rx Instructions:
10mg (two tablets) twice a day for one week then 5mg (one tablet) twice a day.
Referrals:
Victor Hugo Rai DO [Family Provider, Family Practice] - Follow up in 2-3 days
Activity Restrictions/Additional Instructions:
Recommend using your walker to help when you are more dizzy. However if you do not feel safe at home please return for reevaluation
Return immediately with any other neurologic symptoms
If the meclizine helps you can continue to use that as needed
Follow-up with your neurologist and ENT physician
Interventions
Interventions:
*Risk Screen - Suicide Last Done: 02/24/25 23:30
*General Assessment Last Done: 02/24/25 20:11
*Neglect/Abuse Screening Last Done: 02/24/25 23:30
*ED- Fall Risk Assessment Last Done: 02/24/25 23:30
*ED COVID-19 Vaccine History Last Done: 02/24/25 23:30
*ED Influenza Vaccine History Last Done: 02/24/25 23:30
ED- Cardiac Assessment Last Done: 02/24/25 23:33
ED- Neurological Assessment Last Done: 02/24/25 23:33
ED- Pulmonary Assessment Last Done: 02/24/25 23:33
Discharge Date and Time
Print Language: POLISH
[2025-02-25] VITALS: BP 166/81
[2025-02-25 00:06] VITALS: BMI 35.5
[2025-02-25] MEDS: NSS 500 IV (00:15)
[2025-02-25 00:36] VITALS: BP 161/71
[2025-02-25 00:49] LABS: Troponin I 0.014 ng/ml
[2025-02-25 01:00] VITALS: BP 136/72
[2025-02-25 02:08] VITALS: BP 149/73
[2025-02-25] MEDS: ANTIVERT 12.5 MG PO (02:23)
== END 2025-02-25 02:29 | disposition home or self-care (01) ==
LOC: EMR 20:03
PROVIDERS: Emergency Medicine; EMERGENCY PHYSICIAN Emergency Medicine; FAMILY PHYSICIAN Family Medicine
DX: R42 Dizziness and giddiness (principal); R07.9 Chest pain, unspecified; I10 Essential (primary) hypertension; I45.10 Unspecified right bundle-branch block; E04.2 Nontoxic multinodular goiter
CPT/HCPCS: 96360; 96361; 99284; 70450; 70496; 70498; 80053; 84484; 85025; 93005; Q9967

== ENCOUNTER → 2025-05-12 09:15 | Outpatient (REF) | payer MEDICARE, OTHER, SELFPAY | LOC: RAD 09:15 | PROVIDERS: ATTENDING PHYSICIAN Family Medicine | DX: N95.1 Menopausal and female climacteric states (principal); Z13.820 Encounter for screening for osteoporosis; Z78.0 Asymptomatic menopausal state | CPT/HCPCS: 77080 ==